=== PATIENT | male | born 2000 | race African-American/Black ===

== ENCOUNTER 2018-07-07 12:23 | Emergency (ER) | payer SELFPAY ==
[~2018-07-07] VITALS: Ht 188 cm; Wt 65.0 kg
[2018-07-07 15:06] VITALS: BP 115/75
== END 2018-07-07 15:08 | disposition home or self-care (01) ==
LOC: ER 12:43
DX: R20.2 Paresthesia of skin (principal); F17.200 Nicotine dependence, unspecified, uncomplicated
CPT/HCPCS: 82962; 99282

== ENCOUNTER 2018-07-11 15:25 | Emergency (ER) | payer SELFPAY ==
[2018-07-11 15:46] VITALS: BP 117/52
== END 2018-07-11 19:06 | disposition left against medical advice (07) ==
LOC: ER 16:08
DX: Z53.21 Procedure and treatment not carried out due to patient leaving prior to being seen by health care provider (principal)

== ENCOUNTER 2018-07-16 15:21 | Emergency (ER) | payer SELFPAY ==
[~2018-07-16] VITALS: Ht 188 cm; Wt 64.0 kg
[2018-07-16 15:32] VITALS: BP 114/44
== END 2018-07-16 17:04 | disposition left against medical advice (07) ==
LOC: ER 15:21
DX: R10.11 Right upper quadrant pain (principal); Z53.21 Procedure and treatment not carried out due to patient leaving prior to being seen by health care provider

== ENCOUNTER 2019-09-26 05:19 | Emergency (ER) | payer MEDICAID ==
[~2019-09-26] VITALS: Ht 188 cm; Wt 69.3 kg
[2019-09-26 05:50] VITALS: BP 104/55
[2019-09-26] MEDS ORDERED: IBUPROFEN 600MG TABLET PO ONE (06:45)
== END 2019-09-26 09:05 | disposition home or self-care (01) ==
LOC: ER 05:19
DX: R51 Headache (principal); R42 Dizziness and giddiness; F12.10 Cannabis abuse, uncomplicated
CPT/HCPCS: 82962; 93005; 99283